=== PATIENT | male | born 1955 | race Asian ===

== ENCOUNTER 2019-03-16 15:18 | Emergency (ER) | payer OTHER, MEDICAID ==
[~2019-03-16] VITALS: Ht 162.6 cm; Wt 75.7 kg
[2019-03-16 15:44] VITALS: Ht 162.6 cm; Wt 75.7 kg
[2019-03-16 18:23] VITALS: BP 171/89
== END 2019-03-16 18:24 | disposition home or self-care (01) ==
LOC: ED 15:18
DX: B02.8 Zoster with other complications (principal); E11.9 Type 2 diabetes mellitus without complications; I10 Essential (primary) hypertension; E78.00 Pure hypercholesterolemia, unspecified; F17.210 Nicotine dependence, cigarettes, uncomplicated; M79.651 Pain in right thigh; R10.9 Unspecified abdominal pain
CPT/HCPCS: 99406

== ENCOUNTER 2019-04-10 14:32 | Emergency (ER) | payer OTHER, MEDICAID ==
[~2019-04-10] VITALS: Ht 165.1 cm; Wt 73.9 kg
[2019-04-10 14:37] VITALS: BP 133/88; Ht 165.1 cm; Wt 73.9 kg
== END 2019-04-10 15:30 | disposition home or self-care (01) ==
LOC: ED 14:32
DX: B02.29 Other postherpetic nervous system involvement (principal); I10 Essential (primary) hypertension; E11.9 Type 2 diabetes mellitus without complications; E78.00 Pure hypercholesterolemia, unspecified

== ENCOUNTER 2019-07-15 07:29 | Emergency (ER) | payer OTHER, MEDICAID ==
[~2019-07-15] VITALS: Ht 165.1 cm; Wt 76.7 kg
[2019-07-15 07:40] VITALS: Ht 165.1 cm; Wt 76.7 kg
[2019-07-15 09:31] VITALS: BP 134/76
== END 2019-07-15 09:31 | disposition home or self-care (01) ==
LOC: ED 07:29
DX: S22.32XA Fracture of one rib, left side, initial encounter for closed fracture (principal); E11.9 Type 2 diabetes mellitus without complications; I10 Essential (primary) hypertension; E78.00 Pure hypercholesterolemia, unspecified; F17.210 Nicotine dependence, cigarettes, uncomplicated; W01.0XXA Fall on same level from slipping, tripping and stumbling without subsequent striking against object, initial encounter; Y93.89 Activity, other specified; Y92.89 Other specified places as the place of occurrence of the external cause; Y99.8 Other external cause status
CPT/HCPCS: 99406; J1885